=== PATIENT | female | born 1945 | race Caucasian/White ===

== ENCOUNTER 2016-10-20 10:16 | Outpatient (CLI) | payer BC ==
[~2016-10-20 10:16] MED LIST: LOVA40TA75 PO; OLME40TA13 PO; PIOG45TA PO; VALS1TAB6 PO
== END 2016-10-20 20:00 | disposition home or self-care (01) ==
LOC: SMA 10:16
PROVIDERS: ATTEND Family Medicine
DX: Z12.31 Encounter for screening mammogram for malignant neoplasm of breast (principal)
CPT/HCPCS: G0202

== ENCOUNTER 2017-11-02 08:25 | Outpatient (CLI) | payer BC | END 2017-11-02 19:06 | disposition home or self-care (01) | LOC: SMA 08:25 | PROVIDERS: ATTEND Family Medicine | DX: Z12.31 Encounter for screening mammogram for malignant neoplasm of breast (principal) | CPT/HCPCS: 77067 ==

== ENCOUNTER 2019-01-30 09:42 | Outpatient (CLI) | payer BC ==
[~2019-01-30 09:42] MED LIST changes: +OLME40TA12 PO; -OLME40TA13 PO
== END 2019-01-30 20:23 | disposition home or self-care (01) ==
LOC: SUS 09:42
PROVIDERS: ATTEND Family Medicine
DX: R10.9 Unspecified abdominal pain (principal); I70.0 Atherosclerosis of aorta
CPT/HCPCS: 76700-TC

== ENCOUNTER 2019-06-10 09:59 | Outpatient (CLI) | payer BC | END 2019-06-10 21:39 | disposition home or self-care (01) | LOC: SMA 09:59 | PROVIDERS: ATTEND Family Medicine | DX: Z12.31 Encounter for screening mammogram for malignant neoplasm of breast (principal) | CPT/HCPCS: 77067 ==

== ENCOUNTER 2020-06-24 15:57 | Emergency (ER) | payer BC ==
[~2020-06-24] VITALS: Ht 152.4 cm; Wt 54.4 kg
[2020-06-24 16:13] VITALS: BP_SYST 140
[2020-06-24] MEDS ORDERED: NS 500 ML IV ONE (16:30)
[2020-06-24] MEDS ORDERED: ONDANSETRON HCL 4 MG/2 ML VIAL IVP ONE (16:30)
[2020-06-24] MEDS ORDERED: PANTOPRAZOLE SODIUM 40 MG/VIAL (PROTONIX) IVP ONE (16:30)
[2020-06-24] MEDS ORDERED: DICY10SO PO (16:57)
[2020-06-24] MEDS ORDERED: METF500S7 PO (16:57)
[2020-06-24] MEDS ORDERED: LIP40 PO (16:57)
[2020-06-24] MEDS ORDERED: OLME1TAB82 PO (16:57)
[2020-06-24 17:15] LABS: BASOPHILS # (AUTO) 0.1 K/uL (0.0-0.2); BASOPHILS % (AUTO) 1.2 % (0.0-2.0); EOSINOPHILS % (AUTO) 0.5 % (0.0-4.0); HEMOGLOBIN 10.8 g/dL (12.0-16.0); LYMPHOCYTES # (AUTO) 0.8 K/uL (1.0-5.5); LYMPHOCYTES % (AUTO) 18.1 % (20.5-51.5); MEAN CORPUSCULAR HEMOGLOBIN 18 pg (27-31); MEAN CORPUSCULAR HGB CONC 30 % (32-36); MEAN CORPUSCULAR VOLUME 61 fL (79.0-98.0); MONOCYTES # (AUTO) 0.4 K/uL (0.0-1.0); MONOCYTES % (AUTO) 7.6 % (1.7-9.3); NEUTROPHILS # (AUTO) 3.4 K/uL (1.8-7.7); NEUTROPHILS % (AUTO) 72.6 % (40.0-70.0); PLATELET COUNT (AUTO) 345 K/uL (130-430); RED CELL DISTRIBUTION WIDTH 22.9 % (9.0-15.0); WHITE BLOOD COUNT (AUTO) 4.7 K/uL (4.8-10.8)
[2020-06-24 17:23] LABS: BILIRUBIN,URINE NEGATIVE (NEGATIVE); BLOOD, URINE NEGATIVE (NEGATIVE); COLOR,URINE YELLOW (YELLOW); GLUCOSE,URINE NEGATIVE (NEGATIVE); KETONES,URINE 1+ (NEGATIVE); LEUKOCYTE ESTERASE ,URINE NEGATIVE (NEGATIVE); NITRITE, URINE NEGATIVE (NEGATIVE); PH,URINE 8.5 (5.0-8.0); PROTEIN URINE NEGATIVE (NEGATIVE); UROBILINOGEN,URINE 0.2 (0.2-1.0)
[2020-06-24 17:25] LABS: CLARITY/URINE SLIGHTLY HAZY (CLEAR)
[2020-06-24 17:50] LABS: ANION GAP 8 (5-15); CALCIUM 9.3 mg/dL (8.4-11.0); CHLORIDE 103 mmol/L (98-107); CREATININE 0.89 mg/dL (0.55-1.30); GLUCOSE 117 mg/dL (70-99); POTASSIUM 3.6 mmol/L (3.5-5.1); SODIUM SERUM 138 mmol/L (136-145); UREA NITROGEN, BLOOD 15 mg/dL (8-21)
[2020-06-24 18:08] LABS: ALANINE AMINOTRANSFERASE 19 U/L (12-78); ASPARTATE AMINOTRANSFERASE 26 U/L (10-37); TOTAL BILIRUBIN 0.8 mg/dL (0.0-1.0)
[2020-06-24 18:09] LABS: ALBUMIN 3.5 g/dL (3.4-4.8); LIPASE 157 U/L (73-393)
[2020-06-24 18:40] LABS: PROTHROMBIN TIME 10.5 SECS (9.5-12.5)
[2020-06-24] MEDS ORDERED: IBUP-1971 PO (19:31)
[2020-06-24] MEDS ORDERED: CIPR-211 PO (19:31)
[2020-06-24] MEDS ORDERED: ONDA4TAB5 PO (19:31)
[2020-06-24 20:04] VITALS: BP_SYST 107
== END 2020-06-24 20:00 | disposition home or self-care (01) ==
LOC: SED 15:57
DX: K52.9 Noninfective gastroenteritis and colitis, unspecified (principal); I10 Essential (primary) hypertension; E11.9 Type 2 diabetes mellitus without complications; E78.5 Hyperlipidemia, unspecified; Z90.49 Acquired absence of other specified parts of digestive tract; Z79.899 Other long term (current) drug therapy
CPT/HCPCS: 36415; 71045; 74176; 74177; 76376; 80053; 81003; 82962; 83605; 83690; 84484; 85025; 85610; 85730; 87040; 87086; 93005; 96361; 96374; 96375; 99285; C9113; J2405; J7040; Q9967

== ENCOUNTER 2021-07-25 11:26 | Outpatient (CLI) | payer BC ==
[~2021-07-25 11:26] MED LIST changes: +CIPR500T5 PO; +DICY10SO PO; +IBUP-1971 PO; +LIP40 PO; -LOVA40TA75 PO; +METF500S7 PO; +OLME1TAB88 PO; -OLME40TA12 PO; +ONDA4TAB5 PO; -PIOG45TA PO; -VALS1TAB6 PO
== END 2021-07-25 20:06 | disposition home or self-care (01) ==
LOC: SMA 11:26
PROVIDERS: ATTEND Family Medicine
DX: Z12.31 Encounter for screening mammogram for malignant neoplasm of breast (principal)
CPT/HCPCS: 77067

== ENCOUNTER 2022-10-20 11:18 | Outpatient (CLI) | payer BC ==
[~2022-10-20 11:18] MED LIST changes: -METF500S7 PO; +METF500S9 PO
== END 2022-10-20 20:52 | disposition home or self-care (01) ==
LOC: SMA 11:18
DX: Z12.31 Encounter for screening mammogram for malignant neoplasm of breast (principal)
CPT/HCPCS: 77067

== ENCOUNTER 2023-10-22 10:26 | Outpatient (CLI) | payer BC | END 2023-10-22 18:15 | disposition home or self-care (01) | LOC: SMA 10:26 | PROVIDERS: ATTEND Family Medicine | DX: Z12.31 Encounter for screening mammogram for malignant neoplasm of breast (principal); R92.1 Mammographic calcification found on diagnostic imaging of breast | CPT/HCPCS: 77067 ==